=== PATIENT | male | born 1990 | race Caucasian/White ===

== ENCOUNTER 2024-12-21 15:02 | Emergency (ER) | payer BC, SELFPAY ==
--- NOTE | ~2024-12-21 | XR_ITS ---
EXAMINATION: XR chest 2V Exam Date/Time: 12/21/2024 15:35 BOND TRADER HISTORY: prod cough x 5 days non smoker Comparison: None. RESULT: Lines, tubes, and devices: None. Lungs and pleura: Ill-defined patchy subsegmental and segmental airspace opacities in the right lowe r lobe. No pneumothorax or pleural effusion. Cardiomediastinal silhouette: Stable. Other: No acute osseous or upper abdominal finding. IMPRESSION: Subsegmental and segmental airspace disease in the right lower lobe suspicious for pneumonia. Reviewed, dictated and finalized at location K. TRADER
[2024-12-21 15:15] VITALS: BP 121/76; PULSE 91; RESP 16; TEMP 37.1; O2SAT 100
--- NOTE | 2024-12-21 15:21 | ED.URI ---
HPI - URI/Sore Throat General Chief Complaint: Upper Respiratory Infection Stated Complaint: SINGH,fever,cough,right side pain when inhaling Time Seen by Provider: 12/21/24 15:21 Source: patient, RN notes reviewed and old records reviewed Mode of arrival: ambulatory Limitations: no limitations History of Present Illness HPI Narrative: Patient presents with complaints cough for 1 week. He reports that the onset of illness he did have a fever and headache. He now reports pain to right side with deep inhalation. He does report the cough is minimally productive. Denies any shortness of breath. He has been taking [id number]-eed-[id number] medications with moderate relief. He is not in any distress Related Data Allergies Allergy/AdvReac Type Severity Reaction Status Date / Time No Known Allergies Allergy Verified 12/21/24 15:27 Review of Systems Review of Systems: All systems reviewed & are unremarkable except as noted in HPI and below Constitutional: Constitutional: Reports no additional constitutional complaints, Reports fever(s) and Reports headache(s) ENT: Reports system reviewed and no additional complaints, except as documented Cardiovascular: Cardiovascular: Reports no additional cardiovascular complaints Respiratory: Respiratory: Reports no additional respiratory complaints, Reports chest congestion, Reports cough and Reports pain with cough Gastrointestinal: Gastrointestinal: Reports no additional gastrointestinal complaints PMFSH Comments At the time of my signature, I reviewed and agree with the nursing past medical, surgical, social, and family history. There is no relevant family history pertinent to the patient complaint. Exam Const: General: cooperative, no acute distress, alert and awake Orientation/consciousness: oriented to person, oriented to place and oriented to time HENMT: Head: normal to inspection Ears: TM's normal bilaterally Mouth: Yes moist mucous membranes Throat: posterior oropharynx normal Resp: Effort & Inspection: normal respiratory effort and able to speak in complete sentences Auscultation: clear to auscultation bilaterally, no crackles, no rales, no rhonchi and no wheezes Cardio: Palpation: normal PMI Rate: regular rate Rhythm: regular rhythm Heart sounds: S1 normal heart sound present and S2 normal heart sound present Neuro: General: oriented to person, oriented to place and oriented to time Cranial nerves: Yes CN's II-XII intact bilaterally Psych: Appearance: grossly normal Thought process: Normal thought process present Insight: Good insight present (Psych) Judgement: Good judgement present (Psych) Course Course Level of Care: Express Care Visit Vital Signs Vital signs: Vital Signs Temperature 98.8 F 12/21/24 15:15 Pulse Rate 91 12/21/24 15:15 Respiratory Rate 16 12/21/24 15:15 Blood Pressure 121/76 12/21/24 15:15 Pulse Oximetry 100 12/21/24 15:15 Oxygen Delivery Room Air 12/21/24 15:15 Temperature 98.8 F 12/21/24 15:15 Pulse Rate 91 12/21/24 15:15 Respiratory Rate 16 12/21/24 15:15 Blood Pressure 121/76 12/21/24 15:15 Pulse Oximetry 100 12/21/24 15:15 Oxygen Delivery Room Air 12/21/24 15:15 Reviewed MDM - URI/Sore Throat Imaging Data Attestation: I personally reviewed and interpreted this imaging study as follows: My impression: Right lower lobe pneumonia Radiologist's impression: [facility] [address] [place] [address] XRay Report Signed Patient: Tony Salinas : 1990 MR#: [id number] Age: 34 Acct:[id number] Loc: [facility] ADM Date: 12/21/24Attending Dr: Ordering Physician: Angela Suarez FNP Date of Service: 12/21/24 Procedure(s): XR chest 2V Accession Number(s): [id number] cc: Angela Suarez FNP; [place], Washington Elias MD~ EXAMINATION: XR chest 2V Exam Date/Time: 12/21/2024 15:35 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 RESULT: Lines, tubes, and devices: None. Lungs and pleura: Ill-defined patchy subsegmental and segmental airspace opacities in the right lower lobe. No pneumothorax or pleural effusion. Cardiomediastinal silhouette: Stable. Other: No acute osseous or upper abdominal finding. IMPRESSION: Subsegmental and segmental airspace disease in the right lower lobe suspicious for pneumonia. Reviewed, dictated and finalized at location K. LE OPERATOR Please be advised this is a medical document. It is intended for [id number] communication. It is written in medical language and may contain unfamiliar abbreviations or verbiage. Medical documents are intended to carry relevant information, facts as evident, and the clinical opinion of the practitioner at the time of the encounter. This report may have been done utilizing a voice recognition system. Attempts have been made to correct errors. However, there may be uncorrected grammatical, spelling, and recognition errors present. The file time of this note does not necessarily represent the time of service. Dictated By: Toro Pena MD 12/21/24 1555 Signed By: <Electronically signed by Toro Pena MD in OV> Discharge Plan Discharge Clinical Impression: Pneumonia Qualifiers: Pneumonia type: due to unspecified organism Laterality: right Lung location: lower lobe of lung Qualified Code(s): J18.9 - Pneumonia, unspecified organism Patient Disposition: Home, Self-Care Condition: Stable Instructions: Antibiotic Form, Bacterial Pneumonia (ED) Additional Instructions: Take medications as prescribed. Follow-up with primary care provider. Emergency department for new or worse symptoms Patient Language: Greek Prescriptions: New azithromycin 250 mg tablet See Rx Instructions .ROUTE .COMPLEX Qty: 6 0RF Rx Instructions: For 250 mg dose pack: take 500 mg today (day 1), then 250 mg for 4 days (days 2-5) albuterol sulfate [Ventolin HFA] 90 mcg/actuation HFA aerosol inhaler 2 puff inhalation QID PRN (Reason: shortness of breath or wheezing) Qty: 8.5 0RF Follow-up/Referrals: Charlotte,Washington Elias MD [Primary Care Provider] - 2 Weeks Time of Disposition: 16:08
== END 2024-12-21 16:21 | disposition home or self-care (01) ==
PROVIDERS: Emergency Provider Nurse Practitioner Family; PCP Family Medicine
DX: J18.9 Pneumonia, unspecified organism (principal)
CPT/HCPCS: 71046; 99203; G0463